=== PATIENT | female | born 2000 | race Two or more races ===

== ENCOUNTER 2022-04-18 18:06 | Emergency (ER) | payer OTHER ==
[~2022-04-18] VITALS: Ht 160 cm; Wt 51.3 kg
[2022-04-18] MEDS ORDERED: ULTRACET PO (23:22)
[2022-04-18] MEDS ORDERED: ZOVIRAX400 MG PO (23:22)
== END 2022-04-18 23:43 | disposition home or self-care (01) ==
LOC: ER 18:06
DX: A60.00 Herpesviral infection of urogenital system, unspecified (principal); K59.00 Constipation, unspecified